=== PATIENT | male | born 2005 | race Hispanic/Latino ===

== ENCOUNTER 2024-03-10 11:18 | Emergency (ER) | payer SELFPAY ==
[~2024-03-10] VITALS: Ht 157.5 cm; Wt 94.8 kg
[2024-03-10 11:28] VITALS: BP 131/77
[2024-03-10 11:30] VITALS: BP 120/60
[2024-03-10 12:01] VITALS: BP 114/60
[2024-03-10 12:30] VITALS: BP 118/57
[2024-03-10] MEDS ORDERED: KEFLEX500 MG PO (12:42)
[2024-03-10 12:44] VITALS: BP 118/57
[2024-03-10] MEDS ORDERED: Diph, Acellular Pertussis, Tet 0.5 ML/VIAL (Tdap) SDV IM ONE (12:45)
== END 2024-03-10 13:03 | disposition home or self-care (01) | DRG 603 ==
LOC: ED 11:18
DX: L03.032 Cellulitis of left toe (principal)

== ENCOUNTER 2024-04-19 09:51 | Emergency (ER) | payer SELFPAY ==
[2024-04-19] VITALS (7 sets, daily range): BP systolic 105–145; BP diastolic 58–105
[~2024-04-19] VITALS: Ht 157.5 cm; Wt 79.4 kg
[~2024-04-19 09:51] MED LIST: KEFLEX500 MG PO
[2024-04-19] MEDS ORDERED: LIDOcaine HCl 1% (Local Anesth.) 20 ML VIAL STI STA (10:42)
[2024-04-19] MEDS ORDERED: POVIDONE IODINE 0.5 OZ/BTL TOP ONE (10:45)
[2024-04-19] MEDS ORDERED: CEPHALEXIN500 M1 PO (10:51)
[2024-04-19] MEDS ORDERED: MUPIROCIN (PSEUDOMONAS FLUORES 22 GM/TUBE TUBE TOP ONE (11:10)
[2024-04-19] MEDS ORDERED: MUPIROCIN2 % EX (11:10)
== END 2024-04-19 11:54 | disposition home or self-care (01) | DRG 607 ==
LOC: ED 09:51
PROC: 0HDRXZZ Extraction of Toe Nail, External Approach (ICD-10-PCS; principal; 2024-04-19)
DX: L60.0 Ingrowing nail (principal)